=== PATIENT | female | born 1990 ===

== ENCOUNTER 2019-02-17 03:08 | Emergency (ER) | payer OTHER ==
--- OUTSIDE RECORDS SUMMARY | 2019-02-17 03:17 | XMS REPORT | Continuity of Care Document ---
:1990 External Reference #:[id number] Author Name Juan Jose Markham JR, DO (transmitted by agent of provider Josie Dave ) Address [address], [place] [address] Care Team Providers Name Role Phone [facility] Care Team Information Fire Marshal [phone] Problems Description No Information Available Social History Type Date Description Comments Sex Unknown Tobacco Use Start: Unknown Never Smoked Cigarettes ETOH Use Currently consumes alcohol 3xwk Recreational Drug Use Denies Drug Use Tobacco Use Start: Unknown Patient has never smoked Smoking Status Reviewed: 02/15/19 Patient has never smoked Exercise Type/Frequency Exercises regularly Seat Belt/Car Seat Always uses seat belt Allergies, Adverse Reactions, Alerts Description No Known Drug Allergies Medications Active Medications SIG Qnty Indications Ordering Provider Date Mirena (52 MG) placed 04/2014 Unknown Multivitamins Unknown Immunizations Description No Information Available Vital Signs Date Vital Result Comment 2019 8:03am BP Systolic 120 mmHg BP Diastolic 72 mmHg Height 62 inches 5'2" Weight 116.00 lb BMI (Body Mass Index) 21.2 kg/m2 Last Menstrual Period [id number] 1 Parity 0 Results Description No Information Available Procedures Description No Information Available Medical Devices Description No Information Available Encounters Type Date Location Provider Dx Diagnosis Office Visit 2019 [facility] Juan Jose Markham JR, DO N75.0 Cyst of Bartholin's 8:00a gland Assessments Date Code Description Provider 2019 N75.0 Cyst of Bartholin's gland Juan Jose Markham JR, DO Plan of Treatment Future Appointment(s):03/09/2019 1:30 pm - Juan Jose Markham JR, DO at [facility] - Juan Jose Markham JR DON75.0 Cyst of Bartholin's glandComments:cyst of bartholin's glandThis is the 3rd time it has occured in this ptAmenable to I&amp ;D and placement of word catheterPt opts to RTO tomorrow for drainage and catheter placement Functional Status Description No Information Available Mental Status Description No Information Available Referrals Description No Information Available
--- OUTSIDE RECORDS SUMMARY | 2019-02-17 03:17 | XMS REPORT | Continuity of Care Document ---
:1990 External Reference #:[id number] Author Name Juan Jose Markham JR, DO (transmitted by agent of provider Josie Dave ) Address [address], [place] [address] Care Team Providers Name Role Phone [facility] Care Team Information Client Service Supervisor [phone] Problems Description No Information Available Social History Type Date Description Comments Sex Unknown Tobacco Use Start: Unknown Never Smoked Cigarettes ETOH Use Currently consumes alcohol 3xwk Recreational Drug Use Denies Drug Use Tobacco Use Start: Unknown Patient has never smoked Smoking Status Reviewed: 02/16/19 Patient has never smoked Exercise Type/Frequency Exercises regularly Seat Belt/Car Seat Always uses seat belt Allergies, Adverse Reactions, Alerts Description No Known Drug Allergies Medications Active Medications SIG Qnty Indications Ordering Provider Date Mirena (52 MG) placed 04/2014 Unknown Multivitamins Unknown Immunizations Description No Information Available Vital Signs Date Vital Result Comment 02/16/2019 1:06pm BP Systolic 120 mmHg BP Diastolic 70 mmHg Height 62 inches 5'2" Weight 116.00 lb BMI (Body Mass Index) 21.2 kg/m2 Last Menstrual Period [id number] 1 Parity 0 2019 8:03am BP Systolic 120 mmHg BP Diastolic 72 mmHg Height 62 inches 5'2" Weight 116.00 lb BMI (Body Mass Index) 21.2 kg/m2 Last Menstrual Period 3964819 1 Parity 0 Results Description No Information Available Procedures Description No Information Available Medical Devices Description No Information Available Encounters Type Date Location Provider Dx Diagnosis Office Visit 2019 [facility] Juan Jose Markham JR, DO N75.0 Cyst of Bartholin's 8:00a gland Assessments Date Code Description Provider 2019 N75.0 Cyst of Bartholin's gland Juan Jose Rashi JR, DO Plan of Treatment 2019 - Juan Jose Markham JR, DON75.0 Cyst of Bartholin's glandComments:cyst of bartholin's glandThis is the 3rd time it has occured in this ptAmenable to I&amp ;D and placement of word catheterPt opts to RTO tomorrow for drainage and catheter placement Functional Status Description No Information Available Mental Status Description No Information Available Referrals Description No Information Available
--- OUTSIDE RECORDS SUMMARY | 2019-02-17 03:17 | XMS REPORT | Continuity of Care Document ---
:1990 External Reference #:[id number] Author Name Juan Jose Markham JR, DO Address [address], [place] [address] Care Team Providers Name Role Phone [facility] Care Team Information City Bailiff [phone] Problems Description No Information Available Social History [...] Mass Index) 21.2 kg/m2 Last Menstrual Period [id number] 1 Parity 0 Results Description No Information Available Procedures Description No Information Available Medical Devices Description No Information Available Encounters Type Date Location Provider Dx Diagnosis Office Visit 2019 [facility] Juan Jose Markham JR DO N75.0 Cyst of Bartholin's 8:00a gland Assessments Date Code Description Provider 2019 N75.0 Cyst of Bartholin's gland Juan Jose Markham JR, DO Plan of Treatment 2019 - Juan Jose Markham JR DON75.0 Cyst [...]
--- NOTE | 2019-02-17 03:43 | ED ---
GI/ HPI - HPI Summary HPI Summary: This patient is a 29 year old female presenting to [facility] with a chief complaint of vaginal bleeding. Pt states that she had a Bartholin cyst drained 02/16/19 1300. Pt has bright red bleeding, and has changed a pad x 7 since 0000. Pt denies pain. She states she is not on her period. She was told there would be very minimal bleeding upon her initial diagnosis but she states there has been large clots and bright red blood. She reports dizziness. - History of Current Complaint Chief Complaint: EDUrogenitalProblems Time Seen by Provider: 02/17/19 03:29 Stated Complaint: VAGINAL BLEEDING PER PT Hx Obtained From: Patient Onset/Duration: Started Days Ago Timing: Constant, Lasting Hours Vaginal Bleeding Description: Bright Red Pain Intensity: 0 - Allergy/Home Medications Allergies/Adverse Reactions: Allergies Allergy/AdvReac Type Severity Reaction Status Date / Time No Known Allergies Allergy Verified 02/17/19 03:12 Home Medications: Home Medications NK [No Home Medications Reported] 02/17/19 [History Confirmed 02/17/19] PMH/Surg Hx/FS Hx/Imm Hx Endocrine/Hematology History: Denies: Hx Diabetes Cardiovascular History: Denies: Hx Coronary Artery Disease Infectious Disease History: No Infectious Disease History: Denies: Traveled Outside the [place] in Last 30 Days - Family History Known Family History: Negative: Cardiac Disease - Social History Alcohol Use: None Substance Use Type: Reports: None Smoking Status (MU): Never Smoked Tobacco Review of Systems Positive: other - Vaginal bleeding from cyst. Neurological: Other - Dizziness All Other Systems Reviewed And Are Negative: Yes Physical Exam - Summary Physical Exam Summary: General: Well-developed, Well-nourished FEMALE. No acute distress. HEENT: Normocephalic, Atraumatic. Eyes: Conjuctiva normal, PERRL. Ears: TMs within normal limits. Nares: (-) discharge, (-) erythema. Oropharynx: Clear, mucous membranes moist, (-) exudates. Neck: Soft, FROM, (-) lymphadenopathy, (-) thyromegaly, (-) JVD. Cardiovascular: Normal sinus rhythm, (-) murmur. Lungs: Clear to auscultation bilaterally (-) wheezes, (-) rales, (-) rhonchi. Abdomen: Soft, non-tender, non-distended, (-) organomegaly, normal bowel sounds. Back: (-) CVA tenderness Extremities: No edema. Skin: Warm, dry, (-) rash. Neuro: Alert and oriented x3, no focal deficits. Psychiatric: Mood normal, affect normal. OBGYN Exam: Normal external female genitalia, left labia she has a angélica catheter with consistent serous drainage. vaginal vault is normal, cervix is normal appearing, no discharge. On internal exam, there is no adnexal tenderness or masses, no CMT. Triage Information Reviewed: Yes Vital Signs On Initial Exam: Initial Vitals Temp Pulse Resp BP Pulse Ox 98.6 F 95 16 130/83 98 02/17/19 03:10 02/17/19 03:10 02/17/19 03:10 02/17/19 03:10 02/17/19 03:10 Vital Signs Reviewed: Yes Procedures - Sedation Patient Received Moderate/Deep Sedation with Procedure: No Diagnostics - Vital Signs Vital Signs Temp Pulse Resp BP Pulse Ox 02/17/19 03:10 98.6 F 95 16 130/83 98 - Laboratory Lab Statement: Any lab studies that have been ordered have been reviewed, and results considered in the medical decision making process. GIGU Course/Dx - Course Course Of Treatment: This patient is a 29 year old female presenting to [facility] with a chief complaint of vaginal bleeding. A pressure dressing was placed to control the bleeding. We will send her home and she will remove the dressing in 12 hours and then she will return if her bleeding worsens. This plan was discussed with the patient and she was agreeable with this plan. - Diagnoses Provider Diagnoses: Haemorrhagic cyst Discharge ED - Sign-Out/Discharge Documenting (check all that apply): Patient Departure - Discharge - Discharge Plan Condition: Stable Disposition: HOME Patient Education Materials: Bartholin Cyst (ED) Referrals: [facility] - Calvin CURIEL [Primary Care Provider] - Additional Instructions: Remove dressing in 12 hours. If bleeding worsens, return to the ED. - Billing Disposition and Condition Condition: STABLE Disposition: Home - Attestation Statements Document Initiated by Scribe: Yes Documenting Scribe: Ronnie Carrizales Provider For Whom Scribe is Documenting (Include Credential): Chata Fernandez MD Scribe Attestation: Ronnie Villafuerte, scribed for Chata Fernandez MD on 02/17/19 at 0447. Scribe Documentation Reviewed: Yes Provider Attestation: The documentation as recorded by the scribe, Ronnie Carrizales accurately reflects the service I personally performed and the decisions made by me, Chata Fernandez MD Status of Scribe Document: Viewed
[2019-02-17 04:50] VITALS: BP 122/69
== END 2019-02-17 04:49 | disposition home or self-care (01) ==
LOC: ED 03:08
DX: N75.0 Cyst of Bartholin's gland (principal); R42 Dizziness and giddiness
CPT/HCPCS: 99282